=== PATIENT | female | born 1975 | race Caucasian/White ===

== ENCOUNTER 2019-10-17 11:10 | Emergency (ER) | payer BC ==
[~2019-10-17] VITALS: Ht 170.2 cm; Wt 105.2 kg
[~2019-10-17 11:10] MED LIST: LEVOTHYROXINE150 MCG PO; NORCO PO; TRIAMTERENE PO; TYLENOL WITH C1 EACH PO; Z LOESTRIN PO; Z.0.SYNTHROID100 MCG PO
--- OUTSIDE RECORDS SUMMARY | 2019-10-17 11:14 | XMS REPORT ---
Author Author [facility] Address Unknown Phone Unavailable Care Team Providers Care Meat Slicer Name Role Phone Unavailable Unavailable Payers Payer Name Policy Type Policy Number Effective Date Expiration Date Problems This patient has no known problems. Allergies, Adverse Reactions, Alerts Allergy Name Allergy Type Status Severity Reaction(s) Onset Date Inactive Date Treating Clinician Comments No Known Contrast Allergies DA Active U 2009-02-05 00:00:00 No Known Food Allergies DA Active U 2009-02-05 00:00:00 No Known Other Allergies DA Active U 2009-02-05 00:00:00 PENICILLIN DA Active U 2009-02-05 00:00:00 Penicillins DA Active U 2008-03-07 00:00:00 penicillin G DA Active U 2007-09-26 00:00:00 Medications This patient has no known medications.
[2019-10-17] MEDS ORDERED: HYDROCHLOROTH12.5 MG (11:37)
[2019-10-17] MEDS ORDERED: AMLODIPINE BESYL5 MG (11:37)
[2019-10-17] MEDS ORDERED: FLUOXETINE HCL20 MG (11:37)
[2019-10-17] MEDS ORDERED: METOPROLOL SUCC50 MG (11:41)
[2019-10-17] MEDS ORDERED: HYDRALAZINE HCL 20 MG/ML VIAL IV STA (11:47)
[2019-10-17] MEDS ORDERED: HYDROCODONE/APAP 7.5MG-325MG 1 EA TAB PO ONE (12:00)
[2019-10-17 12:31] LABS: BASOPHILS # (AUTO) 0.1 (0.0-0.1); BASOPHILS % 0.6 % (0.0-1.0); EOSINOPHILS # (AUTO) 0.3 (0.0-0.4); HEMATOCRIT 39.9 % (34.2-44.1); HEMOGLOBIN 13.3 g/dL (12.0-16.0); LYMPHOCYTES # (AUTO) 1.2 (1.0-3.2); LYMPHOCYTES % 14.4 % (18.0-39.1); MEAN CORPUSCULAR HEMOGLOBIN 28.7 pg (28-32); MEAN CORPUSCULAR HGB CONC 33.3 g/dL (31-35); MEAN CORPUSCULAR VOLUME 86.2 fL (81-99); MONOCYTES # (AUTO) 0.4 (0.2-0.8); MONOCYTES % 4.7 % (4.4-11.3); NEUTROPHILS # (AUTO) 6.5 (2.1-6.9); NEUTROPHILS % 76.6 % (38.7-80.0); PLATELET COUNT 243 x10e3/uL (140-360); RED BLOOD COUNT 4.63 x10e6/uL (3.6-5.1); RED CELL DISTRIBUTION WIDTH 13.3 % (11.7-14.4)
[2019-10-17 12:32] LABS: BILIRUBIN,URINE NEGATIVE (NEGATIVE); CLARITY,URINE CLOUDY (CLEAR); COLOR,URINE YELLOW (YELLOW); KETONES,URINE NEGATIVE (NEGATIVE); LEUKOCYTE ESTERASE ,URINE TRACE (NEGATIVE); NITRITE,URINE NEGATIVE (NEGATIVE); PROTEIN,URINE DIPSTICK NEGATIVE (NEGATIVE); URINE UROBILINOGEN 0.2 mg/dL (0.2 - 1)
[2019-10-17 12:39] LABS: INR 0.92; PROTHROMBIN TIME 12.9 seconds (11.9-14.5)
[2019-10-17 12:40] LABS: PARTIAL THROMBOPLASTIN TIME 33.2 seconds (23.8-35.5)
[2019-10-17 12:45] LABS: AMORPHOUS SEDIMENT,URINE MANY (FEW); BACTERIA,URINE MANY /HPF; EPITHELIAL CELLS,URINE MANY /LPF
[2019-10-17 12:46] LABS: ALANINE AMINOTRANSFERASE 26 IU/L (0-55); ALBUMIN 3.8 g/dL (3.5-5.0); ALBUMIN/GLOBULIN RATIO 1.1 (0.8-2.0); ALKALINE PHOSPHATASE 81 IU/L (40-150); ANION GAP 14.6 mmol/L (8-16); BLOOD UREA NITROGEN 12 mg/dL (7-26); BUN/CREATININE RATIO 14 (6-25); CALCIUM 9.5 mg/dL (8.4-10.2); CARBON DIOXIDE 26 mmol/L (22-29); CHLORIDE 100 mmol/L (98-107); CREATINE KINASE 37 IU/L (29-168); CREATININE, SERUM 0.88 mg/dL (0.57-1.11); EST GLOMERULAR FILTRATION RATE > 60 ML/MIN (60-); GLUCOSE 122 mg/dL (74-118); POTASSIUM 3.6 mmol/L (3.5-5.1); SODIUM 137 mmol/L (136-145)
[2019-10-17 13:13] LABS: CREATINE KINASE MB < 1.00 ng/mL (0-4.3)
--- NOTE | 2019-10-17 13:18 | NUR ---
rec'd pt in rm 11 from radiology with c/o htn.
--- NOTE | 2019-10-17 13:46 | Diagnostic Imaging Report ---
Examination: CT BRAIN WO CONTRAST History:Headaches. Migraines. Hypertension. Comparison studies:None Technique: Axial images were obtained from the skull base to the vertex. Coronal and sagittal images reconstructed from the axial data. Dose modulation, iterative reconstruction, and/or weight based adjustment of the mA/kV was utilized to reduce the radiation dose to as low as reasonably achievable. Intravenous contrast: None Findings: Scalp: There is a left frontal scalp defect towards the vertex. Bones: No fractures, blastic or lytic lesions. Brain sulci: Appropriate for age. Ventricles: Normal in size and configuration. No hydrocephalus. Extra-axial space: No abnormalities. Parenchyma: No abnormal densities. No masses, hemorrhage, or acute or chronic cortical based vascular insults.. Sellar/suprasellar region: CSF filled sella. Craniocervical junction: Patent foramen magnum. No Chiari one malformation. Incidental findings: None. Impression: No acute intracranial abnormalities. Signed by: Dr. Cammy Amanda M.D. on 10/17/2019 1:43 PM
--- NOTE | 2019-10-17 14:10 | Diagnostic Imaging Report ---
Chest, portable AP view History: Headache, hypertension Comparison: No comparisons available for review IMPRESSION: The cardiomediastinal silhouette and pulmonary vasculature are within normal limits. The lungs are clear without evidence of consolidation or effusion. There are no acute osseous abnormalities. Signed by: Gt Horton MD on 10/17/2019 2:06 PM
[2019-10-17 14:28] VITALS: BP 167/92
== END 2019-10-17 14:37 | disposition home or self-care (01) ==
LOC: ER 11:10
DX: R51 Headache (principal); I10 Essential (primary) hypertension; E03.9 Hypothyroidism, unspecified; F41.9 Anxiety disorder, unspecified; F32.9 Major depressive disorder, single episode, unspecified; E66.01 Morbid (severe) obesity due to excess calories
CPT/HCPCS: 36415; 70450; 71045; 80053; 81001; 82550; 82553; 83880; 84484; 85025; 85610; 85730; 87086; 93005; 99284; J0360